=== PATIENT | male | born 1950 | race Two or more races ===

== ENCOUNTER 2017-03-22 15:02 | Emergency (ER) | payer MEDICARE, MEDICAID ==
[2017-03-22 16:02] VITALS: BP 169/86
== END 2017-03-22 16:43 | disposition home or self-care (01) ==
LOC: ER 15:15
DX: B37.9 Candidiasis, unspecified (principal); E11.9 Type 2 diabetes mellitus without complications; E78.5 Hyperlipidemia, unspecified